=== PATIENT | female | born 1990 | race Caucasian/White ===

== ENCOUNTER 2019-05-04 12:07 | Emergency (ER) | payer SELFPAY ==
[2019-05-04 12:08] VITALS: BP 144/90; PULSE 84; RESP 18; TEMP 37.2; O2SAT 96; BMI 41.9
--- NOTE | 2019-05-04 12:13 | DI.RAD.S_ITS ---
PROCEDURE: XR KNEE LT 3V INDICATIONS: injury pain TECHNIQUE: 3 views of the knee were acquired. COMPARISON: None. FINDINGS: Bones: No displaced fractures or dislocations. No suspicious bony lesions. Soft tissues: There appears to be a prominent joint effusion. No suspicious soft tissue calcifications. IMPRESSION: 1. No displaced left knee fractures. 2. Knee joint effusion. If there is clinical concern for internal derangement, please consider MRI for further evaluation. Dictated by: Dennis Lemons M.D. on 05/04/2019 at 12:03 Approved by: Dennis Lemons M.D. on 05/04/2019 at 12:05
--- NOTE | 2019-05-04 13:05 | PC.NURSE ---
ROM limited secondary to increased pain.
--- NOTE | 2019-05-04 13:12 | ED_ITS ---
HPI - Extremity Injury (Lower) <Altagracia Machado PA-C - Last Filed: 05/04/19 19:14> General Chief Complaint: Extremity Injury, Lower Stated Complaint: injury to left knee/swollen Time Seen by Provider: 05/04/19 12:46 Source: patient Mode of arrival: ambulatory Limitations: physical limitation History of Present Illness HPI Narrative: This 29-year-old female complains of left knee pain since a fall yesterday while playing softball. She states that she jumped into the air to make a catch and came down on uneven ground, thinks her knee twisted outward, and she felt and heard a popping/snapping sensation. She states she then fell down onto the knee, not sure at what ankle. She states that she does not think she injured the knee in the fall, it was the popping and landing and evenly. She states that she did not have any other injury, no pain in her foot or ankle, no head contusion or neck pain. She that she thought she would be able to get up but could not stand on it due to pain. She states that she has severe pain when she tries to bear weight and also the knee feels like it will give out. She denies possibility of Related Data Home Medications Medication Instructions Recorded Confirmed acetaminophen 325 mg PO PRN PRN #0 05/15/17 05/03/19 aspirin 325 - 650 mg PO QDAY #0 05/15/17 05/03/19 ibuprofen 400 mg PO PRN PRN #0 05/15/17 05/03/19 Previous Rx's Medication Instructions Recorded hydrochlorothiazide 25 mg PO QDAY #90 tab 01/14/18 lisinopril 20 mg PO QDAY #90 tab 01/14/18 meloxicam 15 mg PO DAILY #14 tab 05/04/19 Allergies Allergy/AdvReac Type Severity Reaction Status Date / Time amoxicillin [AMOXICILLIN] AdvReac Intermediate HIVES Verified 05/04/19 12:14 azithromycin [AZITHROMYCIN] AdvReac Intermediate HIVES Verified 05/04/19 12:14 erythromycin base AdvReac Intermediate HIVES Verified 05/04/19 12:14 [ERYTHROMYCIN BASE] Penicillins [PENICILLINS] AdvReac Intermediate HIVES Verified 05/04/19 12:14 Sulfa (Sulfonamide AdvReac Intermediate HIVES Verified 05/04/19 12:14 Antibiotics) [SULFA (SULFONAMIDE ANTIBIOTICS)] sulfamethoxazole AdvReac Intermediate HIVES Verified 05/04/19 12:14 [SULFAMETHOXAZOLE] trimethoprim [TRIMETHOPRIM] AdvReac Intermediate HIVES Verified 05/04/19 12:14 Review of Systems <Altagracia Machado PA-C - Last Filed: 05/04/19 19:14> Review of Systems ROS Unobtainable: All systems reviewed & are unremarkable except as noted in HPI and below PFSH <Altagracia Machado PA-C - Last Filed: 05/04/19 19:14> Medical History (Updated 05/04/19 @ 14:01 by Altagracia Machado PA-C) Essential hypertension Surgical History (Updated 05/04/19 @ 14:06 by Altagracia Machado PA-C) Status post adenoidectomy (Resolved) Social History Smoking Status: Current every day smoker Social History Smoking Status: Current every day smoker Exam <Altagracia Machado PA-C - Last Filed: 05/04/19 19:14> Narrative Exam Narrative: GENERAL APPEARANCE: Patient sitting comfortably, in no distress. LUNGS: Clear to auscultation bilaterally. HEART: Rate and rhythm regular without murmur, normal S1 and S2, no S3 or S4. MUSCULOSKELETAL: Left knee mild effusion, tender across the joint line and at the inferior medial patellar border. Very limited a ROM secondary to ten derness, with extension to about 20? and flexion to 45. Passive range of motion near full extension and flexion to 80? with some tenderness. No clear laxity but unable to fully assess secondary to tenderness. No tenderness or effusion for the lower leg or ankle. NEUROVASCULAR: Left lower extremity sensation is grossly intact, toes are warm and pink with brisk cap refill Initial Vital Signs Initial Vital Signs: Vital Signs Temperature 99.0 F 05/04/19 12:08 Pulse Rate 84 05/04/19 12:08 Respiratory Rate 18 05/04/19 12:08 Blood Pressure 144/90 H 05/04/19 12:08 Pulse Oximetry 96 05/04/19 12:08 <Alem Hassan MD - Last Filed: 05/04/19 19:58> Initial Vital Signs Initial Vital Signs: Vital Signs Temperature 99.0 F 05/04/19 12:08 Pulse Rate 84 05/04/19 12:08 Respiratory Rate 18 05/04/19 12:08 Blood Pressure 144/90 H 05/04/19 12:08 Pulse Oximetry 96 05/04/19 12:08 Course <Altagracia Machado PA-C - Last Filed: 05/04/19 19:14> Orders Ordered: ED Orders 05/04/19 12:13 XR knee LT 3V Stat Vital Signs - 8 hr 05/04/19 12:08 05/04/19 14:19 Temperature 99.0 F Pulse Rate 84 80 Respiratory Rate 18 16 Blood Pressure 144/90 H 140/94 H Pulse Oximetry 96 98 <Alem Hassan MD - Last Filed: 05/04/19 19:58> Orders Ordered: ED Orders 05/04/19 12:13 XR knee LT 3V Stat Vital Signs - 8 hr 05/04/19 12:08 05/04/19 14:19 Temperature 99.0 F Pulse Rate 84 80 Respiratory Rate 18 16 Blood Pressure 144/90 H 140/94 H Pulse Oximetry 96 98 MDM - Extremity Injury (Lower) <Altagracia Machado PA-C - Last Filed: 05/04/19 19:14> Imaging Data knee: Radiologist's impression: [address] [address] XRay Report Signed Patient: Lyn Ballesteros R#: [id number] : 1990Acct:[id number] Age/Sex: FDate of Service: 05/04/19 Loc: ED Accession Number: [id number] Procedure: XR knee LT 3V Ordering Provider: Altagracia Machado P.A-C PROCEDURE: XR KNEE LT 3V INDICATIONS: injury pain TECHNIQUE: 3 views of the knee were acquired. COMPARISON: None. FINDINGS: Bones: No displaced fractures or dislocations. No suspicious bony lesions. Soft tissues: There appears to be a prominent joint effusion. No suspicious soft tissue calcifications. IMPRESSION: 1. No displaced left knee fractures. 2. Knee joint effusion. If there is clinical concern for internal derangement, please consider MRI for further evaluation. Dictated by: Dennis Lemons M.D. on 05/04/2019 at 12:03 Approved by: Dennis Lemons M.D. on 05/04/2019 at 12:05 Discharge Plan Departure Patient Disposition: Home Clinical Impression: Internal derangement of knee, acute Qualifiers: Laterality: left Qualified Code(s): M23.92 - Unspecified internal derangement of left knee Discharge Date/Time: 05/04/19 14:20 Interventions: ED Discharge Assessment Last Done: 05/04/19 14:19 Instructions: DI for Knee Pain, How to Use a Knee Immobilizer Activity Restrictions/Additional Instructions: Your x-ray does show some swelling in your knee joint today, no acute injury of the bones. From what you have described to me I suspect that you have a soft tissue injury, i.e. meniscus or ligament tear. Sometimes these heal on their own or improved with physical therapy, sometimes surgery is needed. It is difficult to determine from exam today which is typical due to the pain and swelling right after an injury. Please follow-up with your PCP in a few days to recheck this and determine whether you need a referral for further imaging studies or physical therapy. We have given you a knee immobilizer to help with pain and stability, and if you need your crutches in addition to that please use these. You can bear weight gently on flat surfaces as you tolerate and as this starts to feel better. I have sent in a prescription for a once daily anti- inflammatory/pain reliever called meloxicam to [facility] for you to take instead of ibuprofen, and you can add Tylenol to this as needed. Please elevate and use ice if you find that helpful and you can use other topical medicines if you wish. Please return if you have any acutely worsening symptoms. Prescriptions: New meloxicam 15 mg tablet 15 mg PO DAILY Qty: 14 RF: 0 No Action acetaminophen 325 MG tablet 325 mg PO PRN PRNQty: 0 RF: 0 ibuprofen 200 MG tablet 400 mg PO PRN PRNQty: 0 RF: 0 aspirin 325 MG tablet 325 - 650 mg PO QDAY Qty: 0 RF: 0 lisinopril 20 MG tablet 20 mg PO QDAY Qty: 90 RF: 1 hydrochlorothiazide 25 MG tablet 25 mg PO QDAY Qty: 90 RF: 1 Referrals: Jory Ferris PA-C [Primary Care Provider] - Stand Alone Forms: Work Release Note
[2019-05-04 14:19] VITALS: BP 140/94; PULSE 80; RESP 16; O2SAT 98
== END 2019-05-04 14:20 | disposition home or self-care (01) ==
PROVIDERS: Emergency Provider Internal Medicine; PCP Physician Assistant
DX: M23.92 Unspecified internal derangement of left knee (principal); W19.XXXA Unspecified fall, initial encounter; Y93.64 Activity, baseball
CPT/HCPCS: 73562; 99283

== ENCOUNTER → 2019-12-11 12:07 | Outpatient (CLI) | payer OTHER, SELFPAY ==
[2019-12-11 13:08] LABS: Alanine Aminotransferase 41 IU/L (<35); Albumin 4.2 g/dL (3.5-5.0); Albumin Globulin Ratio 1.4 (1.0-2.8); Alkaline Phosphatase 42 U/L (38-126); Aspartate Aminotransferase 23 IU/L (14-36); BUN Creatinine Ratio 23.3 (6-22); Bilirubin Total 0.3 mg/dL (0.2-1.3); Blood Urea Nitrogen 14 mg/dL (7-17); Calcium 8.9 mg/dL (8.4-10.2); Carbon Dioxide 27 mmol/L (22-32); Chloride 104 mmol/L (98-107); Cholesterol 183 mg/dL (140-199); Estimated Glomerular Filt Rate > 60.0 mL/min (>60); Glucose 117 mg/dL (70-100); HDL Cholesterol 41 mg/dL (40-60); HEMOLYSIS < 15 (0-50); LDL Cholesterol Calculated 122 mg/dL (<100); Potassium 4.4 mmol/L (3.4-5.1); Sodium 138 mmol/L (137-145); Total Protein 7.2 g/dL (6.3-8.2); Triglycerides 101 mg/dL (35-150)
[2019-12-11 15:21] LABS: Creatinine Urine Random 209.9 mg/dL
[2019-12-11 15:25] LABS: Microalbumi Creatinin Ratio Ur 8.5 ug/mg CR (<30); Microalbumin Urine Random 1.8 mg/dL (0-1.6)
== END ==
PROVIDERS: PCP Physician Assistant; Visit Provider Physician Assistant
DX: I10 Essential (primary) hypertension (principal)
CPT/HCPCS: 36415; 80053; 80061; 82043; 82570

== ENCOUNTER → 2019-12-24 17:01 | Outpatient (CLI) | payer OTHER, SELFPAY ==
--- NOTE | 2019-12-24 17:08 | DI.MRI.S_ITS ---
PROCEDURE: MR KNEE LT WO CON INDICATIONS: PAIN IN LEFT KNEE TECHNIQUE: Noncontrast sagittal PD fast spin echo and T2 fast spin echo with fat saturation, sagittal 3-D FLASH with fat saturation; coronal T1 spin echo and PD fast spin echo with fat saturation, and axial PD fast spin echo with fat saturation through the knee. COMPARISON: [facility], CR, XR KNEE ARTHRITIC SERIES LT, 11/27/2019, 15:34. FINDINGS: Image quality: Degraded by motion artifact and body habitus Menisci: Linear horizontally oriented high T2 signal intensity within the medial meniscal body and posterior horn is present, demonstrating inferior articular surface extension. Cruciate ligaments: There is full-thickness chronic appearing tearing of the anterior cruciate ligament. Posterior cruciate ligament is intact. Medial structures: The medial collateral ligament appears intact. Visualized portions of the pes anserinus tendons appear normal. No abnormal bursal fluid. Lateral structures: The lateral collateral ligament, long and short heads of the biceps femoris tendon appear intact. The popliteus tendon appears normal. Iliotibial band appears normal. Anterior structures: The quadriceps and patellar tendons appear intact. Patellar alignment is normal. No femoral trochlear dysplasia or ventral trochlear prominence. No edema in the infrapatellar fat pad. Bones and cartilage: No bone marrow contusions or fractures. Mild diffuse articular cartilage loss overlies the weightbearing aspect of the medial femoral condyle and medial tibial plateau. A 3 mm diameter moderate grade region of articular cartilage loss overlies the lateral patellar facet adjacent to the apex. Mild articular cartilage loss overlies the medial patellar facet. Joint space: There is a moderate knee joint effusion and a small Guajardo's cyst. Normal appearing synovial plicae are incidentally noted. IMPRESSION: 1. Chronic full-thickness anterior cruciate ligament tear. 2. Medial meniscal tear. 3. Knee joint effusion and Guajardo's cyst. 4. Medial and patellofemoral compartment articular cartilage loss. Dictated by: Rosa Garner M.D. on 12/25/2019 at 9:32 Approved by: Rosa Garner M.D. on 12/25/2019 at 9:36
== END ==
PROVIDERS: Visit Provider Orthopaedic Surgery Adult Reconstructive Orthopaedic Surgery
DX: M25.562 Pain in left knee (principal); S83.512A Sprain of anterior cruciate ligament of left knee, initial encounter; S83.242A Other tear of medial meniscus, current injury, left knee, initial encounter; M25.462 Effusion, left knee; M71.22 Synovial cyst of popliteal space [Baker], left knee
CPT/HCPCS: 73721

== ENCOUNTER → 2020-01-27 13:54 | Outpatient (CLI) | payer OTHER, SELFPAY ==
[2020-01-27 14:35] LABS: Influenza A - CEPHEID Flu A NEGATIVE (NEGATIVE); Influenza B - CEPHEID Flu B NEGATIVE (NEGATIVE)
== END ==
PROVIDERS: PCP Physician Assistant; Visit Provider Physician Assistant
DX: R68.89 Other general symptoms and signs (principal)
CPT/HCPCS: 87502

== ENCOUNTER 2020-04-24 10:44 | Emergency (ER) | payer OTHER, SELFPAY ==
[2020-04-24 11:01] VITALS: BP 139/77; PULSE 78; RESP 17; TEMP 36.3; O2SAT 99
[2020-04-24 11:21] VITALS: BP 139/77; PULSE 78; RESP 17; TEMP 36.3; O2SAT 99; BMI 36.3
--- NOTE | 2020-04-24 11:56 | ED.WOUNDLAC ---
HPI - Wound/Laceration <SHEBA Jacobson - Last Filed: 04/24/20 13:27> General Chief Complaint: Wound/Laceration Stated Complaint: left hand 4th digit cut today Time Seen by Provider: 04/24/20 11:09 Source: patient Mode of arrival: Ambulatory History of Present Illness HPI narrative: 30-year-old female presenting to the emergency department complaining of a laceration to her left 4th finger. She was cutting an avocado when the knife slipped she cut her finger. Bleeding was controlled with a pressure bandage. She states she believes her last tetanus was less than 5 years ago and declines a booster at this time. Patient denies any numbness, tingling, erythema, pus, other injuries, or any other concerns. Related Data Home Medications Medication Instructions Recorded Confirmed acetaminophen 325 mg PO PRN PRN #0 05/15/17 01/27/20 ibuprofen 400 mg PO PRN PRN #0 05/15/17 01/27/20 aspirin 325 mg tablet 650 mg PO Q4-6H PRN 05/05/19 01/27/20 Previous Rx's Medication Instructions Recorded escitalopram oxalate 10 mg tablet 15 mg PO DAILY #135 tab 12/28/19 hydrochlorothiazide 25 mg tablet 25 mg PO DAILY #90 tab 12/28/19 lisinopril 20 mg tablet 20 mg PO DAILY #90 tab 12/28/19 Allergies Allergy/AdvReac Type Severity Reaction Status Date / Time amoxicillin [AMOXICILLIN] AdvReac Intermediate HIVES Verified 01/27/20 14:02 azithromycin [AZITHROMYCIN] AdvReac Intermediate HIVES Verified 01/27/20 14:02 erythromycin base AdvReac Intermediate HIVES Verified 01/27/20 14:02 [ERYTHROMYCIN BASE] Penicillins [PENICILLINS] AdvReac Intermediate HIVES Verified 01/27/20 14:02 Sulfa (Sulfonamide AdvReac Intermediate HIVES Verified 01/27/20 14:02 Antibiotics) [SULFA (SULFONAMIDE ANTIBIOTICS)] sulfamethoxazole AdvReac Intermediate HIVES Verified 01/27/20 14:02 [SULFAMETHOXAZOLE] trimethoprim [TRIMETHOPRIM] AdvReac Intermediate HIVES Verified 01/27/20 14:02 Review of Systems <SHEBA Jacobson - Last Filed: 04/24/20 13:27> Review of Systems Narrative: REVIEW OF SYSTEMS: GENERAL: Denies fever or chills. HENT: Denies head trauma. CARDIOVASCULAR: Denies syncope. MUSCULOSKELETAL: Denies weakness, or deformities. INTEGUMENTARY: Complains of left 4th finger laceration, see HPI. NEURO: Denies numbness or tingling. Patient History <SHEBA Jacobson - Last Filed: 04/24/20 13:27> Medical History Essential hypertension (Chronic) Surgical History Status post adenoidectomy (Resolved) Social History Smoking Status: Current every day smoker Tobacco: How many years used: 10 quit status: considering quitting (I have patches at home to help me to quit smoking) second hand exposure: No alcohol intake: former (I used to drink socially.) substance use type: does not use Smoking Status: Current every day smoker Exam <SHEBA Jacobson - Last Filed: 04/24/20 13:27> Initial Vital Signs Initial Vital Signs: Vital Signs Temperature 97.4 F L 04/24/20 11:01 Pulse Rate 78 04/24/20 11:01 Respiratory Rate 17 04/24/20 11:01 Blood Pressure 139/77 04/24/20 11:01 Pulse Oximetry 99 04/24/20 11:01 PHYSICAL EXAMINATION: GENERAL: Well groomed, alert, and cooperative. Answers questions promptly and appropriately. Vital signs noted. HENT: Normocephalic, atraumatic. RESPIRATORY: Normal respiratory rate, trachea midline, airway patent. No stridor, nasal flaring or accessory muscle use. MUSCULOSKELETAL: Normal gait and coordination. Equal tone and mass bilaterally. EXTREMITIES: CMS intact. Moves all extremities. SKIN: Warm, dry, soft, appropriate color for ethnicity. A 2.5 cm skin avulsion noted to lateral palmar aspect of left 4th finger. Laceration does not involve the nail or the dip joint. Patient has full range of motion of her finger against resistance. Bleeding controlled with pressure. NEURO: Alert and Oriented X 3. Good coordination. PSYCH: Appropriate affect and mood. <Davion Macario MD - Last Filed: 05/27/20 07:33> Initial Vital Signs Initial Vital Signs: Vital Signs Temperature 97.4 F L 04/24/20 11:01 Pulse Rate 78 04/24/20 11:01 Respiratory Rate 17 04/24/20 11:01 Blood Pressure 139/77 04/24/20 11:01 Pulse Oximetry 99 04/24/20 11:01 Procedures <SHEBA Jacobson - Last Filed: 04/24/20 13:27> Laceration Repair Laceration 1: Site: upper extremity Side (If applicable): left Size (cm): 2.5 Description: flap Depth: simple, single layer Pre-repair: irrigated extensively Skin layer closed with: dermabond Course <SHEBA Jacobson - Last Filed: 04/24/20 13:27> Course Course Narrative: Wound was irrigated extensively, Small amount of glue placed to the area to help control bleeding. Vital Signs Vital signs: Vital Signs - 8 hr 04/24/20 11:01 04/24/20 11:21 Temperature 97.4 F L 97.4 F L Pulse Rate 78 78 Respiratory Rate 17 17 Blood Pressure 139/77 Blood Pressure [Right Arm] 139/77 Pulse Oximetry 99 99 <Davion Macario MD - Last Filed: 04/27/20 07:33> Vital Signs Vital signs: Vital Signs - 8 hr 04/24/20 11:01 04/24/20 11:21 Temperature 97.4 F L 97.4 F L Pulse Rate 78 78 Respiratory Rate 17 17 Blood Pressure 139/77 Blood Pressure [Right Arm] 139/77 Pulse Oximetry 99 99 MDM - Wound/Laceration <SHEBA Jacobson - Last Filed: 04/24/20 13:27> Medical Records Attestation: I reviewed the patient's medical records. Lab Data Attestation: I reviewed the patient's lab results. MDM Narrative Medical decision making narrative: 30-year-old healthy female presents emergency department complaining of a laceration from a knife. On examination, patient appears to have an avulsion. Patient's wound was irrigated extensively with normal saline. Small amount of Dermabond was placed to the area to help control bleeding. Bandage was placed over this area. Patient was counseled extensively to watch for signs of infection although rare, there is a chance this can happen. Patient was encouraged to return if any signs of infection present. Patient was offered a Tdap she was unsure when the last dose was but believes it was in the past 5 years, patient declined. Patient agreed to plan of care verbalized understanding. Discharge Plan Departure Patient Disposition: Home Clinical Impression: Laceration Discharge Date/Time: 04/24/20 12:05 Instructions: DI for Laceration Repair Activity Restrictions/Additional Instructions: Thank you for entrusting me with your care today. As discussed, your laceration was repaired with glue. This all began to peel off and 3-4 days. Do not use Neosporin on this area for the next 3 days as this will dissolve the glue too quickly. Keep the area dry and clean, do not soak the area in any water such as dishwater, lakes, or hot tubs. No foreign bodies were found in your wound today. While there is low-risk for infection at this time, retained foreign bodies and infection are always possible with any cut or break in the skin. Please monitor the wound closely and be re-evaluated immediately if you develop any signs of infection such as pus, increasing redness, increasing pain, fevers, or any other concerns. Prescriptions: No Action acetaminophen 325 MG tablet 325 mg PO PRN PRNQty: 0 RF: 0 ibuprofen 200 MG tablet 400 mg PO PRN PRNQty: 0 RF: 0 aspirin 325 mg tablet 650 mg PO Q4-6H PRNRF: 0 escitalopram oxalate 10 mg tablet 15 mg PO DAILY Qty: 135 RF: 1 hydrochlorothiazide 25 mg tablet 25 mg PO DAILY Qty: 90 RF: 1 lisinopril 20 mg tablet 20 mg PO DAILY Qty: 90 RF: 1
== END 2020-04-24 12:05 | disposition home or self-care (01) ==
PROVIDERS: Emergency Provider Nurse Practitioner
DX: S61.215A Laceration without foreign body of left ring finger without damage to nail, initial encounter (principal); W26.0XXA Contact with knife, initial encounter
CPT/HCPCS: 99282; 99283

== ENCOUNTER 2021-01-03 17:49 | Emergency (ER) | payer OTHER, SELFPAY ==
[2021-01-03 18:13] VITALS: PULSE 80; RESP 22; TEMP 36.4; O2SAT 100
[2021-01-03 18:15] VITALS: BP 147/91
--- NOTE | 2021-01-03 18:16 | DI.RAD.S_ITS ---
PROCEDURE: XR KNEE LT 3V INDICATIONS: glf, lt knee pain TECHNIQUE: 3 views of the knee were acquired. COMPARISON: [facility], CR, XR KNEE LT 3V, 05/04/2019, 12:20. FINDINGS: Bones: No fractures or dislocations. No suspicious bony lesions. Soft tissues: No joint effusion. No suspicious soft tissue calcifications. IMPRESSION: No acute left knee fracture or dislocation. No joint effusion. Dictated by: Joseph Arnett M.D. on 01/03/2021 at 17:40 Approved by: Joseph Arnett M.D. on 01/03/2021 at 17:40
--- NOTE | 2021-01-03 19:52 | PC.NURSE ---
Pt has previously injured knee and has been seen by orthopedist. states pain is worse after falling but feels the same as previous injury.
--- NOTE | 2021-01-03 20:07 | ED_ITS ---
HPI - Extremity Injury (Lower) General Chief Complaint: Extremity Injury, Lower Stated Complaint: LEFT KNEE INJURY FALL Time Seen by Provider: 01/03/21 20:02 Source: patient Mode of arrival: Ambulatory History of Present Illness HPI Narrative: Patient complains of left knee pain. Was in the walk-in cooler at work. Backing out from an area and slipped and fell onto her left knee. Denies denies any other injuries. Has been ambulatory since then. She was concerned because in 2018, May 2019 injured her left knee playing softball. Primary care physician is trying to get patient referred to Orthopedics. Had MRI in 2019 known ligamentous injuries. Patient is not wanting crutches. Has a can home. Desires to take ibuprofen and ice and elevate knee at home. Has off work tomorrow already by her employer. Pants off, shoes and socks off. Related Data Previous Rx's Medication Instructions Recorded ibuprofen 800 mg tablet 800 mg PO Q8H PRN #30 tab 07/25/20 bupropion HCl 150 mg tablet,12 hr 150 mg PO DAILY #60 ea 11/14/20 sustained-release escitalopram oxalate 20 mg tablet 20 mg PO DAILY #90 tab 11/14/20 hydrochlorothiazide 12.5 mg tablet 12.5 mg PO DAILY #90 tab 11/14/20 lisinopril 20 mg tablet 20 mg PO DAILY #90 tab 11/14/20 Allergies Allergy/AdvReac Type Severity Reaction Status Date / Time amoxicillin [AMOXICILLIN] AdvReac Intermediate HIVES Verified 11/14/20 09:41 azithromycin [AZITHROMYCIN] AdvReac Intermediate HIVES Verified 11/14/20 09:41 erythromycin base AdvReac Intermediate HIVES Verified 11/14/20 09:41 [ERYTHROMYCIN BASE] Penicillins [PENICILLINS] AdvReac Intermediate HIVES Verified 11/14/20 09:41 Sulfa (Sulfonamide AdvReac Intermediate HIVES Verified 11/14/20 09:41 Antibiotics) [SULFA (SULFONAMIDE ANTIBIOTICS)] sulfamethoxazole AdvReac Intermediate HIVES Verified 11/14/20 09:41 [SULFAMETHOXAZOLE] trimethoprim [TRIMETHOPRIM] AdvReac Intermediate HIVES Verified 11/14/20 09:41 Review of Systems Review of Systems Narrative: GENERAL: Denies chills, fatigue, malaise, fever, sweats. MUSCULOSKELETAL: denies muscle complains of bony pain SKIN: Denies rash, skin lesions NEUROLOGIC: Denies weakness, or numbness ROS Unobtainable: All systems reviewed & are unremarkable except as noted in HPI and below Patient History Medical History Essential hypertension Surgical History Status post adenoidectomy Social History Smoking Status: Current every day smoker Tobacco: How many years used: 10 quit status: considering quitting (I have patches at home to help me to quit smoking) second hand exposure: No alcohol intake: former (I used to drink socially.) substance use type: does not use Smoking Status: Current every day smoker Exam Narrative Exam Narrative: GENERAL: patient appears stated age. Well-nourished, well- developed patient, in no distress, not toxic not dyspneic HEAD: Normocephalic. EXTREMITIES: No gross deformities. Examination left lower extremity. She is in socks off. Pants off. Left leg exam nontender foot and ankle. Foot is warm soft and pink with light touch active foot and toes. Strong ankle flexion extension. Able to actively flex and extend knee to 90? and fully extend knee. Mild tenderness to the patella. No pain or laxity of the left knee with anterior posterior medial lateral and rotational stress of the left leg. NEURO: AOx4. SKIN: Warm and dry PSYCH: Not anxious, is cooperative Initial Vital Signs Initial Vital Signs: Vital Signs Temperature 97.5 F L 01/03/21 18:13 Pulse Rate 80 01/03/21 18:13 Respiratory Rate 22 01/03/21 18:13 Pulse Oximetry 100 01/03/21 18:13 Course Course Course Narrative: No new complaints during course of stay Orders Ordered: ED Orders 01/03/21 18:16 XR knee LT 3V Stat Reevaluation(s) Reevaluation #1: Reviewed results with patient. Patient states family doctor is already getting referral for Orthopedics but I will give her referral just in case. Patient does not want crutches. She has a cane at home. She desires Omi wrap. Vital Signs Vital signs: Vital Signs - 8 hr 01/03/21 18:13 01/03/21 18:15 Temperature 97.5 F L Pulse Rate 80 Respiratory Rate 22 Blood Pressure 147/91 H Pulse Oximetry 100 MDM - Extremity Injury (Lower) Imaging Data Extremity x-ray #1: Radiologist's Impression: [address] [id number] ReportSigned Patient: Lyn Ballesteros YMR#: [id number]: 1990Acct:[id number]/Sex: 30 / FDate of Service: 01/03/21Loc: EDAccession Number: [id number] Procedure: XR knee LT 3V Ordering Provider: Mauricio Moreno D.O. PROCEDURE: XR KNEE LT 3V INDICATIONS: glf, lt knee pain TECHNIQUE: 3 views of the knee were acquired. COMPARISON: [facility], , XR KNEE LT 3V, 05/04/2019, 12:20. FINDINGS: Bones: No fractures or dislocations. No suspicious bony lesions. Soft tissues: No joint effusion. No suspicious soft tissue calcifications. IMPRESSION: No acute left knee fracture or dislocation. No joint effusion. Dictated by: Joseph Arnett M.D. on 01/03/2021 at 17:40 Approved by: Joseph Arnett M.D. on 01/03/2021 at 17:40 [facility] Narrative Medical decision making narrative: Appropriate for discharge home. Patient is ambulatory. No neuro complaints. No vascular injury or complaints. Strong pedal pulse. Leg and foot is warm soft and pink. Patient had MRI December 24, 2019 of the same knee. Discharge Plan Departure Patient Disposition: Home Clinical Impression: Contusion of knee Qualifiers: Encounter type: initial encounter Laterality: left Qualified Code(s): S80.02XA - Contusion of left knee, initial encounter Instructions: DI for Knee Sprain, DI for Knee Pain Activity Restrictions/Additional Instructions: See family doctor for referral to Orthopedics or call provided orthopedic office tomorrow for office recheck in a week. Ice and elevate knee 20 minutes at a time as needed for pain and swelling. Continue ibuprofen or Tylenol for pain. Use Omi wrap for comfort. Use your home cane for walking as you desired. Return if worse or for any questions or concerns Prescriptions: No Action ibuprofen 800 mg tablet 800 mg PO Q8H PRN (Reason: pain) Qty: 30 RF: 2 hydrochlorothiazide 12.5 mg tablet 12.5 mg PO DAILY Qty: 90 RF: 3 lisinopril 20 mg tablet 20 mg PO DAILY Qty: 90 RF: 3 escitalopram oxalate [Lexapro] 20 mg tablet 20 mg PO DAILY Qty: 90 RF: 3 bupropion HCl [Wellbutrin SR] 150 mg tablet sustained-release 12 hr 150 mg PO DAILY Qty: 60 RF: 1 Referrals: Farzana Guerrero MD [Physician] - Mahesh Randhawa ARNP [Primary Care Provider] -
== END 2021-01-03 20:14 | disposition home or self-care (01) ==
PROVIDERS: Emergency Provider Emergency Medicine; PCP Registered Nurse Diabetes Educator
DX: S80.02XA Contusion of left knee, initial encounter (principal); W19.XXXA Unspecified fall, initial encounter; I10 Essential (primary) hypertension
CPT/HCPCS: 73562; 99283

== ENCOUNTER → 2022-11-22 16:28 | Outpatient (CLI) | payer BC, SELFPAY ==
[2022-11-22 18:44] LABS: Urine N gonorrhoeae NOT DETECTED
[2022-11-22 18:47] LABS: Urine Chlamydia DETECTED
== END ==
PROVIDERS: PCP Registered Nurse Diabetes Educator; Visit Provider Registered Nurse Diabetes Educator
DX: B37.31 Acute candidiasis of vulva and vagina (principal); N89.8 Other specified noninflammatory disorders of vagina
CPT/HCPCS: 87210; 87220; 87491; 87591

== ENCOUNTER → 2022-12-06 15:20 | Outpatient (CLI) | payer BC, SELFPAY ==
[2022-12-06 15:51] LABS: Hematocrit 40.8 % (36-46); Hemoglobin 13.6 g/dL (12.0-16.0); Mean Corpuscular HGB Conc 33.3 % (30-36); Mean Corpuscular Hemoglobin 29.6 PG (26-34); Mean Corpuscular Volume 88.8 fL (80-100); Platelet Count 337 X10^3/uL (150-400); Red Blood Cell Count 4.59 X10^6/uL (4.0-5.2); Red Cell Distribution Width 12.8 % (11.6-14.8); White Blood Cell Count 5.4 X10^3/uL (4.5-11.0)
[2022-12-06 16:21] LABS: Alanine Aminotransferase 50 IU/L (<35); Albumin 4.3 g/dL (3.5-5.0); Albumin Globulin Ratio 1.3 (1.0-2.8); Alkaline Phosphatase 49 U/L (38-126); Aspartate Aminotransferase 27 IU/L (14-36); Bilirubin Total 0.5 mg/dL (0.2-1.3); Blood Urea Nitrogen 8 mg/dL (7-17); Calcium 8.8 mg/dL (8.4-10.2); Carbon Dioxide 25 mmol/L (22-32); Chloride 106 mmol/L (98-107); Cholesterol 149 mg/dL (140-199); Estimated Glomerular Filt Rate > 60 mL/min (>60); Globulin 3.3 g/dL (1.7-4.1); Glucose 113 mg/dL (70-100); HDL Cholesterol 45 mg/dL (40-60); HEMOLYSIS 41 (0-50); LDL Cholesterol Calculated 88 mg/dL (<100); Potassium 4.1 mmol/L (3.4-5.1); Sodium 141 mmol/L (137-145); Total Protein 7.6 g/dL (6.3-8.2); Triglycerides 81 mg/dL (35-150)
[2022-12-06 17:11] LABS: TSH w/ Reflex to FT4 1.83 uIU/mL (0.47-4.68)
[2022-12-06 18:07] LABS: Urine N gonorrhoeae NOT DETECTED
[2022-12-06 18:10] LABS: Urine Chlamydia NOT DETECTED
[2022-12-06 18:36] LABS: HIV 1 & 2 Ab/Ag 4th Gen Combo NEGATIVE (NEGATIVE); Hep C Virus Ab w/Reflex Quant NEGATIVE s/c (NEGATIVE); Hepatitis B Surface Antigen NEGATIVE s/c (NEGATIVE)
[2022-12-07 09:27] LABS: RPR Screen Non Reactive (Non Reactive)
== END ==
PROVIDERS: PCP Registered Nurse Diabetes Educator; Referring Provider Registered Nurse Diabetes Educator; Visit Provider Registered Nurse Diabetes Educator
DX: Z00.00 Encounter for general adult medical examination without abnormal findings (principal); I10 Essential (primary) hypertension; A74.9 Chlamydial infection, unspecified; Z72.51 High risk heterosexual behavior
CPT/HCPCS: 36415; 80053; 80061; 84443; 85027; 86592; 86803; 87340; 87389; 87491; 87591

== ENCOUNTER → 2023-01-01 17:38 | Outpatient (CLI) | payer BC, SELFPAY ==
[2023-01-01 19:40] LABS: Urine N gonorrhoeae NOT DETECTED
[2023-01-01 19:59] LABS: Urine Chlamydia NOT DETECTED
== END ==
PROVIDERS: PCP Registered Nurse Diabetes Educator; Referring Provider Registered Nurse Diabetes Educator; Visit Provider Registered Nurse Diabetes Educator
DX: A74.9 Chlamydial infection, unspecified (principal)
CPT/HCPCS: 87491; 87591

== ENCOUNTER → 2023-01-25 11:33 | Outpatient (CLI) | payer BC, SELFPAY | PROVIDERS: PCP Registered Nurse Diabetes Educator; Visit Provider Student in an Organized Health Care Education/Training Program | DX: J02.9 Acute pharyngitis, unspecified (principal) | CPT/HCPCS: 87070; 87077; 87147 ==

== ENCOUNTER → 2023-04-18 19:23 | Outpatient (CLI) | payer BC, SELFPAY | PROVIDERS: PCP Registered Nurse Diabetes Educator; Visit Provider Student in an Organized Health Care Education/Training Program | DX: L02.91 Cutaneous abscess, unspecified (principal) | CPT/HCPCS: 87070; 87075; 87077; 87147; 87205 ==

== ENCOUNTER → 2024-07-07 11:17 | Outpatient (CLI) | payer OTHER, SELFPAY ==
[2024-07-07 12:04] LABS: Hematocrit 44.7 % (36-46); Hemoglobin 15.4 g/dL (12.0-16.0); Mean Corpuscular HGB Conc 34.5 % (30-36); Mean Corpuscular Hemoglobin 30.7 PG (26-34); Platelet Count 392 X10^3/uL (150-400); Red Blood Cell Count 5.03 X10^6/uL (4.0-5.2); Red Cell Distribution Width 12.8 % (11.6-14.8); White Blood Cell Count 6.4 X10^3/uL (4.5-11.0)
[2024-07-07 12:17] LABS: Hemoglobin A1C% w Est Avg Glu 6.4 % (4.0-6.0)
[2024-07-07 12:21] LABS: Alanine Aminotransferase 76 IU/L (<35); Albumin 4.2 g/dL (3.5-5.0); Albumin Globulin Ratio 1.3 (1.0-2.8); Alkaline Phosphatase 55 U/L (38-126); Aspartate Aminotransferase 42 IU/L (14-36); BUN Creatinine Ratio 15.9 (6-22); Bilirubin Total 1.4 mg/dL (0.2-1.3); Blood Urea Nitrogen 11 mg/dL (7-17); Carbon Dioxide 27 mmol/L (22-32); Chloride 103 mmol/L (98-107); Cholesterol 145 mg/dL (140-199); Estimated Glomerular Filt Rate > 60 mL/min (>60); Globulin 3.3 g/dL (1.7-4.1); Glucose 156 mg/dL (70-100); HDL Cholesterol 49 mg/dL (40-60); HEMOLYSIS < 15 (0-50); LDL Cholesterol Calculated 75 mg/dL (<100); Potassium 3.7 mmol/L (3.4-5.1); Sodium 137 mmol/L (137-145); Total Protein 7.5 g/dL (6.3-8.2); Triglycerides 105 mg/dL (35-150)
[2024-07-07 12:49] LABS: TSH w/ Reflex to FT4 2.73 uIU/mL (0.47-4.68)
== END ==
PROVIDERS: PCP Registered Nurse Diabetes Educator; Referring Provider Registered Nurse Diabetes Educator; Visit Provider Registered Nurse Diabetes Educator
DX: Z00.00 Encounter for general adult medical examination without abnormal findings (principal)
CPT/HCPCS: 36415; 80053; 80061; 83036; 84443; 85027

== ENCOUNTER → 2024-07-13 12:49 | Outpatient (CLI) | payer OTHER, SELFPAY ==
[2024-07-13 14:48] LABS: Urine Chlamydia NOT DETECTED; Urine N gonorrhoeae NOT DETECTED
== END ==
PROVIDERS: PCP Registered Nurse Diabetes Educator; Visit Provider Registered Nurse Diabetes Educator
DX: N94.9 Unspecified condition associated with female genital organs and menstrual cycle (principal)
CPT/HCPCS: 87491; 87591

== ENCOUNTER → 2024-07-16 09:13 | Outpatient (CLI) | payer OTHER, SELFPAY | PROVIDERS: PCP Registered Nurse Diabetes Educator; Referring Provider Registered Nurse Diabetes Educator; Visit Provider Registered Nurse Diabetes Educator | DX: N94.9 Unspecified condition associated with female genital organs and menstrual cycle (principal) | CPT/HCPCS: 87210 ==

== ENCOUNTER → 2024-09-16 10:43 | Outpatient (CLI) | payer OTHER, SELFPAY ==
[2024-09-16 12:39] LABS: Alanine Aminotransferase 30 IU/L (<35); Albumin 3.9 g/dL (3.5-5.0); Albumin Globulin Ratio 1.5 (1.0-2.8); Alkaline Phosphatase 45 U/L (38-126); Aspartate Aminotransferase 19 IU/L (14-36); Bilirubin Total 0.4 mg/dL (0.2-1.3); Bilirubin Unconjugated 0.1 mg/dL (0.0-1.1); Globulin 2.6 g/dL (1.7-4.1); Glucose 126 mg/dL (70-100); HEMOLYSIS < 15 (0-50); Total Protein 6.5 g/dL (6.3-8.2)
== END ==
LOC: LAB 10:45
PROVIDERS: PCP Registered Nurse Diabetes Educator; Referring Provider Registered Nurse Diabetes Educator; Visit Provider Registered Nurse Diabetes Educator
DX: R74.8 Abnormal levels of other serum enzymes (principal); R73.01 Impaired fasting glucose
CPT/HCPCS: 36415; 80076; 82947

== ENCOUNTER → 2024-11-03 15:27 | Outpatient (CLI) | payer OTHER, SELFPAY ==
--- NOTE | 2024-12-16 11:42 | DIAB.MNT ---
Initial Diabetes Medical Nutrition Therapy Assessment Name: Lyn Ballesteros Date: 11/03/24 Time: 335-445p Dx: Type II Diabetes Provider: Edis Nicholson presents for initial DM visit, newly diagnosed. Endorses FH of DM with both parents. No current DM medications. Diagnosed with elevated FBG per labs of 156 and 126 mg/dl. Recent hgA1c of 6.4% Endorses cravings in the evening time, ie oreos, popcorn, veggie puffs, goldfish crackers. Often skips eating in the morning due to work and lack of appetite. Works at a [employer] Diet Recall: wakes 730-930a sn: nothing or protein bar or cheese or apple 2p: turkey with cheese sandwich on wheat with 1.5 handful of sunchips or protein chips low CHO 6-7p: bratwurst on bun +/- veggies and 1c tater tots OR pasta with cream sauce x 2c no protein and with veggies 10p ice cream x 1-1.5c + other snacks listed above water x 6c rootbeer can x 2-3 days per week ETOH 3x per week : 4 beers or 1.5 bottles of wine Anthropometrics: Ht: 65 Wt: 254# Physical Activity: walks dog 2x per week for 15-20 min, more in the summer time. Self-Monitoring Blood Glucose: None. Brought meter and supplies for SMBG education. BG in clinic was 114mg/dl after return demo. Diabetes Medications: None Pertinent Labs: Glucose: mg/dl 113 12/2022 156 H 07/2024 126 H 09/2024 HgA1c: 6.4% 07/2024 Past Medical History: (Last Reviewed 11/05/24 @ 09:46 by SHEBA Rahman) Diabetes mellitus type 2, controlled, without complications Essential hypertension Genital HSV Impaired fasting blood sugar Yeast vaginitis Nutrition Rx: Carbohydrates: Meal: 30-45g Snack: 15-30g Nutrition Diagnosis: - Predicted excessive CHO intake r/t newly dx DM and lack of nutrition knowledge aeb pt report and elevated FBG - Self monitoring deficit r/t newly dx and knowledge deficit aeb pt report Intervention: This participant was very receptive. Provided appropriate educational handouts. Discussed the following topics: Completed intake assessment. Discussed barriers to care. Pathophysiology of T2DM HgA1c, its correlation to blood glucose numbers, and rationale for goal Importance of self-monitoring, how often, and when to check. Suggested checking at different times to evaluate meals. Return demo completed. Plate Method, impact of macronutrients on blood sugar, meal timing, carbohydrate counting, pairing macronutrients and spreading out carbohydrates for better blood glucose management Recommended servings for carbohydrates at meals and snacks Heart health nutrition Brainstormed appropriate meal plan based on food preferences Role of physical activity and following provider guidelines for safety Created SMART goals for patient self-care and success. Goals: Start checking BG Try frozen brown rice Try a morning snack more consistently Follow-up: [facility] follow-up in 3-4 weeks Sadia Baxter RDN, CDCES Certified Diabetes Care and Estate Attorney P: [phone] Thank you for this referral
== END ==
PROVIDERS: PCP Registered Nurse Diabetes Educator; Referring Provider Registered Nurse Diabetes Educator
DX: E11.9 Type 2 diabetes mellitus without complications (principal); Z71.3 Dietary counseling and surveillance; Z83.3 Family history of diabetes mellitus
CPT/HCPCS: 97802

== ENCOUNTER → 2025-09-30 15:55 | Outpatient (CLI) | payer OTHER, SELFPAY ==
[2025-09-30 16:53] LABS: Hemoglobin A1C% w Est Avg Glu 7.5 % (4.0-6.0)
== END ==
PROVIDERS: PCP Registered Nurse Diabetes Educator; Referring Provider Registered Nurse Diabetes Educator; Visit Provider Registered Nurse Diabetes Educator
DX: E11.9 Type 2 diabetes mellitus without complications (principal)
CPT/HCPCS: 36415; 82043; 82570; 83036

== ENCOUNTER → 2025-11-02 13:27 | Outpatient (CLI) | payer OTHER, SELFPAY ==
[2025-11-02 14:44] LABS: Hematocrit 42.8 % (36-46); Hemoglobin 14.8 g/dL (12.0-16.0); Mean Corpuscular HGB Conc 34.5 % (30-36); Mean Corpuscular Hemoglobin 30.7 PG (26-34); Mean Corpuscular Volume 89.1 fL (80-100); Platelet Count 369 X10^3/uL (150-400)
[2025-11-02 15:01] LABS: Hemoglobin A1C% w Est Avg Glu 7.4 % (4.0-6.0)
[2025-11-02 15:29] LABS: Alanine Aminotransferase 66 IU/L (<35); Albumin 4.5 g/dL (3.5-5.0); Albumin Globulin Ratio 1.6 (1.0-2.8); Alkaline Phosphatase 48 U/L (38-126); Blood Urea Nitrogen 10 mg/dL (7-17); Calcium 9.3 mg/dL (8.4-10.2); Carbon Dioxide 25 mmol/L (22-32); Chloride 101 mmol/L (98-107); Cholesterol 230 mg/dL (140-199); Estimated Glomerular Filt Rate > 60 mL/min (>60); Globulin 2.9 g/dL (1.7-4.1); Glucose 163 mg/dL (70-99); HDL Cholesterol 51 mg/dL (40-60); HEMOLYSIS < 15 (0-50); Potassium 5.3 mmol/L (3.4-5.1); Sodium 136 mmol/L (137-145); Total Protein 7.4 g/dL (6.3-8.2); Triglycerides 139 mg/dL (35-150)
[2025-11-02 15:55] LABS: TSH w/ Reflex to FT4 1.87 uIU/mL (0.47-4.68)
== END ==
PROVIDERS: PCP Registered Nurse Diabetes Educator; Referring Provider Registered Nurse Diabetes Educator; Visit Provider Registered Nurse Diabetes Educator
DX: I10 Essential (primary) hypertension (principal); E78.5 Hyperlipidemia, unspecified; E11.9 Type 2 diabetes mellitus without complications
CPT/HCPCS: 80053; 80061; 83036; 84443; 85027

== ENCOUNTER → 2025-11-23 08:36 | Outpatient (CLI) | payer OTHER, SELFPAY ==
--- NOTE | 2025-11-23 08:37 | DI.CT.S_ITS ---
PROCEDURE: CT ABDOMEN PELVIS W CON INDICATIONS: eval recurrent RLQ pain x 6 months TECHNIQUE: After the administration of intravenous contrast, axial sections acquired from the lung bases to the pubic symphysis. Coronal and sagittal reformats were performed. For radiation dose reduction, the following was used: automated exposure control, adjustment of mA and/or kV according to patient size. COMPARISON: None. FINDINGS: Image quality: Diagnostic. Lower Chest: No significant findings. ABDOMEN: Liver: Mild hepatomegaly and moderate hepatic steatosis. No contour deforming mass. Gallbladder: Macro CT gall blow Biliary ducts: No biliary dilation. Pancreas: Mild fatty infiltration into the pancreas. No ductal dilatation or suspicious mass. Spleen: Size is within normal limits. Adrenal Glands: No adrenal nodules. Kidneys and Ureters: Symmetric enhancement. No nephrolithiasis or hydronephrosis. No visible mass or cyst requiring follow up. No hydroureter. Stomach and Bowel: Normal appendix. Normal terminal ileum no suspicious large or small-bowel abnormalities. Decompressed stomach. Peritoneum: No abnormal intraperitoneal fluid. No free air. Ventral Wall: No significant ventral hernia. Abdominal Nodes: No retroperitoneal or mesenteric adenopathy by size criteria. Vessels: The abdominal aorta, IVC, and portal vein are of normal caliber. PELVIS: Pelvic Organs: Normal size, anteverted uterus. Dominant follicle on the left ovary. The right ovary appears normal. No suspicious adnexal mass. Bladder: No bladder wall thickening, accounting for underdistention. Pelvic Nodes: No enlarged lymph nodes. Miscellaneous: No inguinal hernias are seen. Bones: No aggressive osseous abnormality. IMPRESSION: No explanation for right lower quadrant pain. Mild hepatomegaly and hepatic steatosis. Dictated by: Cherry Nuñez M.D. on 11/23/2025 at 14:57 Approved by: Cherry Nuñez M.D. on 11/23/2025 at 15:01
== END ==
LOC: CT 08:36
PROVIDERS: PCP Registered Nurse Diabetes Educator; Referring Provider Registered Nurse Diabetes Educator; Visit Provider Registered Nurse Diabetes Educator
DX: K76.0 Fatty (change of) liver, not elsewhere classified (principal); R10.31 Right lower quadrant pain; G89.29 Other chronic pain
CPT/HCPCS: 74177; Q9967